=== PATIENT | female | born 2000 | race American Indian/Alaskan Native ===

== ENCOUNTER 2021-04-15 21:09 | Emergency (ER) | payer SELFPAY ==
[2021-04-15 23:29] VITALS: BP 116/72
[2021-04-16] MEDS ORDERED: KETOROLAC 10 MG TAB PO ONE (00:04)
[2021-04-16] MEDS ORDERED: DOXYCYCLINE 100 MG CAP PO ONE (00:04)
[2021-04-16] MEDS ORDERED: ACETAMINOPHEN W/CODEINE 300-30 MG TAB PO ONE (00:05)
--- NOTE | 2021-04-16 00:11 | Emergency Department Report ---
- General Chief complaint: Skin/Abscess/Foreign Body Stated complaint: SKIN RASH/VAGINAL ISSUES Time Seen by Provider: 04/15/21 23:24 Source: patient Mode of arrival: Ambulatory Limitations: No Limitations - History of Present Illness Initial comments: 21 yof with no pmh presents to ed for evaluation of abscesses to several areas of her body. She states that for the past year, she has had intermittent abscesses to her bilateral axillary area, groin, breast and to perineal area. She states that the abscesses are worse the past few days than usual with pain and drainage to certain areas. She denies fever, chills, fatigue and change in appetite. MD complaint: abscess/boil -: Gradual, month(s) (several) Location: chest, genitals Severity scale (0 -10): 10 Quality: aching Consistency: constant Improves with: none Worsens with: movement Associated symptoms: denies other symptoms Treatments Prior to Arrival: none - Related Data Previous Rx's Medication Instructions Recorded Last Taken Type Acetaminophen/Codeine [Tylenol 1 tab PO Q6H PRN #15 tab 04/16/21 Unknown Rx /Codeine # 3 tab] Clindamycin Phosphate [Clindamycin 1 applicatio TP QDAY #1 foam 04/16/21 Unknown Rx 1% TOPICAL FOAM] DOXYCYCLINE Hyclate [Vibramycin 100 mg PO Q12HR #60 capsule 04/16/21 Unknown Rx CAP] Naproxen [Naprosyn] 500 mg PO BID #14 04/16/21 Unknown Rx Allergies Allergy/AdvReac Type Severity Reaction Status Date / Time No Known Allergies Allergy Unverified 04/16/21 00:13 Abscess Boil HPI - HPI Chief Complaint: Skin/Abscess/Foreign Body Stated Complaint: SKIN RASH/VAGINAL ISSUES Time Seen by Provider: 04/15/21 23:24 Duration: >1 Week Location: Perianal Severity: Severe History: Yes Pain, Yes Purulent Drainage, Yes Previous History, No Fever, No Numbness, No Foreign Body, No Insect Bite Home Medications: Previous Rx's Medication Instructions Recorded Last Taken Type Acetaminophen/Codeine [Tylenol 1 tab PO Q6H PRN #15 tab 04/16/21 Unknown Rx /Codeine # 3 tab] Clindamycin Phosphate [Clindamycin 1 applicatio TP QDAY #1 foam 04/16/21 Unknown Rx 1% TOPICAL FOAM] DOXYCYCLINE Hyclate [Vibramycin 100 mg PO Q12HR #60 capsule 04/16/21 Unknown Rx CAP] Naproxen [Naprosyn] 500 mg PO BID #14 04/16/21 Unknown Rx Allergies/Adverse Reactions: Allergies Allergy/AdvReac Type Severity Reaction Status Date / Time No Known Allergies Allergy Unverified 04/16/21 00:13 ED Review of Systems ROS: Stated complaint: SKIN RASH/VAGINAL ISSUES Other details as noted in HPI ED Past Medical Hx - Social History Smoking Status: Current Every Day Smoker - Medications Home Medications: Home Medications Medication Instructions Recorded Confirmed Last Taken Type Acetaminophen/Codeine [Tylenol 1 tab PO Q6H PRN #15 tab 04/16/21 Unknown Rx /Codeine # 3 tab] Clindamycin Phosphate [Clindamycin 1 applicatio TP QDAY #1 foam 04/16/21 Unknown Rx 1% TOPICAL FOAM] DOXYCYCLINE Hyclate [Vibramycin 100 mg PO Q12HR #60 capsule 04/16/21 Unknown Rx CAP] Naproxen [Naprosyn] 500 mg PO BID #14 04/16/21 Unknown Rx ED Physical Exam - General Limitations: No Limitations General appearance: alert, in no apparent distress - Head Head exam: Present: atraumatic, normocephalic - Eye Eye exam: Present: normal appearance. Absent: conjunctival injection - Neck Neck exam: Present: normal inspection - Respiratory Respiratory exam: Present: normal lung sounds bilaterally. Absent: respiratory distress, chest wall tenderness, accessory muscle use - Cardiovascular Cardiovascular Exam: Present: regular rate, normal heart sounds - GI/Abdominal GI/Abdominal exam: Present: soft, normal bowel sounds. Absent: distended, tenderness, guarding - External exam: Present: erythema, swelling, other (noted to have small abscesses to most of external perineal area to include bilateral groin with some purulent drainage noted. area tender to touch) - Extremities Exam Extremities exam: Present: tenderness (noted to have several abscess to bilateral axillary area, area tender to touch with erythema and edema noted. not fluctuant and no drainage noted. ) - Back Exam Back exam: Present: normal inspection, full ROM. Absent: tenderness, CVA tenderness (R), CVA tenderness (L) - Neurological Exam Neurological exam: Present: alert, oriented X3 - Psychiatric Psychiatric exam: Present: normal affect, normal mood - Skin Skin exam: Present: warm, dry, intact, normal color ED Course Vital Signs 04/15/21 04/16/21 23:24 00:40 Temperature 99.0 F Pulse Rate 91 H Respiratory 20 14 Rate Blood Pressure 116/72 O2 Sat by Pulse 100 Oximetry ED Medical Decision Making - Medical Decision Making 21 yof with no pmh presents to ed for evaluation of abscesses to several areas of her body. She states that for the past year, she has had intermittent abscesses to her bilateral axillary area, groin, breast and to perineal area. She states that the abscesses are worse the past few days than usual with pain and drainage to certain areas. She denies fever, chills, fatigue and change in appetite. Upon assessment, abscess areas along with history are suspicious for hidradenitis suppurativa, so patient will be treated with 3 week course of doxycycline po along with clindamycin gel. She is encouraged to follow up with dermatology for further evaluation and management. She verbalized understanding of and agreement with plan of care. Critical care attestation.: If time is entered above; I have spent that time in minutes in the direct care of this critically ill patient, excluding procedure time. ED Disposition Clinical Impression: Abscess Disposition: HOME / SELF CARE / HOMELESS Is pt being admited?: No Does the pt Need Aspirin: No Condition: Stable Instructions: Skin Abscess, [id number], Hidradenitis Suppurativa Additional Instructions: Take medications as prescribed. Follow-up with dermatology for further evaluation. Prescriptions: Clindamycin Phosphate [Clindamycin 1% TOPICAL FOAM] 1 applicatio TP QDAY #1 foam Naproxen [Naprosyn] 500 mg PO BID #14 Acetaminophen/Codeine [Tylenol /Codeine # 3 tab] 1 tab PO Q6H PRN #15 tab PRN Reason: Pain, Moderate (4-6) DOXYCYCLINE Hyclate [Vibramycin CAP] 100 mg PO Q12HR #60 capsule Referrals: NICOLE LING MD [Referring] - 3-5 Days Time of Disposition: 00:12
== END 2021-04-16 01:04 | disposition home or self-care (01) ==
LOC: ED 21:09
DX: L02.215 Cutaneous abscess of perineum (principal); L02.412 Cutaneous abscess of left axilla; L02.411 Cutaneous abscess of right axilla; L02.214 Cutaneous abscess of groin; F17.200 Nicotine dependence, unspecified, uncomplicated; Z79.899 Other long term (current) drug therapy
CPT/HCPCS: 99282

== ENCOUNTER 2021-09-01 00:36 | Emergency (ER) | payer SELFPAY ==
[2021-09-01] MEDS ORDERED: IBUPROFEN 800 MG TAB PO ONE (03:26)
[2021-09-01 05:27] LABS: Bilirubin,Urine NEG (Negative); Blood,Urine NEG (Negative); Color,Urine Yellow (Yellow)
[2021-09-01 05:28] LABS: Mucus,Urine 3+ /HPF
--- NOTE | 2021-09-01 06:57 | Emergency Department Report ---
ED General Adult HPI - General Chief complaint: Sore Throat Stated complaint: CHEST PAIN/THROAT PAIN Time Seen by Provider: 09/01/21 03:26 Source: patient Mode of arrival: Ambulatory Limitations: No Limitations - History of Present Illness Initial comments: Patient is a 21-year-old female who presents for sore throat and chest pain intermittently for a week. Patient states malaise cough productive yellow and malaise. Throat pain is exacerbated by swallowing. Chest pain is exacerbated by movement and deep breathing. There has been no fall injury or trauma. There is no wheezing ,no shortness of breath. Patient does endorse history of asthma. Patient is currently ANO x3 and appears nontoxic. Severity scale (0 -10): 0 - Related Data Previous Rx's Medication Instructions Recorded Last Taken Type Acetaminophen/Codeine [Tylenol 1 tab PO Q6H PRN #15 tab 04/16/21 Unknown Rx /Codeine # 3 tab] Clindamycin Phosphate [Clindamycin 1 applicatio TP QDAY #1 foam 04/16/21 Unknown Rx 1% TOPICAL FOAM] DOXYCYCLINE Hyclate [Vibramycin 100 mg PO Q12HR #60 capsule 04/16/21 Unknown Rx CAP] Naproxen [Naprosyn] 500 mg PO BID #14 04/16/21 Unknown Rx Albuterol Mdi (or & Nicu Only) 2 puff IH QID PRN #8.5 gram 09/01/21 Unknown Rx [ProAir HFA Inhaler] Ibuprofen [Motrin 800 MG tab] 800 mg PO Q8HR PRN #30 tablet 09/01/21 Unknown Rx predniSONE 10 mg PO .TAPER #48 tab 09/01/21 Unknown Rx Allergies Allergy/AdvReac Type Severity Reaction Status Date / Time No Known Allergies Allergy Unverified 04/16/21 00:13 ED Review of Systems ROS: Stated complaint: CHEST PAIN/THROAT PAIN Other details as noted in HPI Constitutional: chills, malaise. denies: fever Eyes: denies: eye pain, eye discharge, vision change ENT: throat pain, congestion. denies: ear pain Respiratory: cough. denies: orthopnea, shortness of breath, wheezing Cardiovascular: chest pain. denies: palpitations, dyspnea on exertion, orthopnea, edema, syncope, paroxysmal nocturnal dyspnea Endocrine: no symptoms reported Gastrointestinal: denies: abdominal pain, nausea, vomiting, diarrhea, constipation, melena Genitourinary: denies: urgency, dysuria, frequency, discharge Musculoskeletal: denies: back pain, joint swelling, arthralgia Skin: denies: rash, lesions Neurological: denies: headache, weakness, paresthesias Psychiatric: denies: anxiety, depression Hematological/Lymphatic: denies: easy bleeding, easy bruising ED Past Medical Hx - Past Medical History Hx Asthma: Yes - Social History Smoking Status: Current Every Day Smoker - Medications Home Medications: Home Medications Medication Instructions Recorded Confirmed Last Taken Type Acetaminophen/Codeine [Tylenol 1 tab PO Q6H PRN #15 tab 04/16/21 Unknown Rx /Codeine # 3 tab] Clindamycin Phosphate [Clindamycin 1 applicatio TP QDAY #1 foam 04/16/21 Unknown Rx 1% TOPICAL FOAM] DOXYCYCLINE Hyclate [Vibramycin 100 mg PO Q12HR #60 capsule 04/16/21 Unknown Rx CAP] Naproxen [Naprosyn] 500 mg PO BID #14 04/16/21 Unknown Rx Albuterol Mdi (or & Nicu Only) 2 puff IH QID PRN #8.5 gram 09/01/21 Unknown Rx [ProAir HFA Inhaler] Ibuprofen [Motrin 800 MG tab] 800 mg PO Q8HR PRN #30 tablet 09/01/21 Unknown Rx predniSONE 10 mg PO .TAPER #48 tab 09/01/21 Unknown Rx ED Physical Exam - General Limitations: No Limitations General appearance: alert, in no apparent distress - Head Head exam: Present: normocephalic, normal inspection - Eye Eye exam: Present: normal appearance, PERRL, EOMI. Absent: conjunctival injection, nystagmus Pupils: Present: normal accommodation - ENT ENT exam: Present: normal orophraynx, mucous membranes moist, TM's normal bilaterally, normal external ear exam - Expanded ENT Exam Expanded Ear exam: Present: normal external inspection Throat exam: Positive: normal inspection, tonsillar erythema. Negative: tonsillomegaly, tonsillar exudate, R peritonsillar mass, L peritonsillar mass - Neck Neck exam: Present: normal inspection, full ROM. Absent: tenderness, meningismus, lymphadenopathy, thyromegaly - Respiratory Respiratory exam: Present: normal lung sounds bilaterally, chest wall tenderness (Anterior lateral chest wall bilateral tenderness to deep palpation. There is no crepitus ecchymosis or swelling or step-off.). Absent: respiratory distress, wheezes, stridor, accessory muscle use, prolonged expiratory - Cardiovascular Cardiovascular Exam: Present: regular rate, normal rhythm, normal heart sounds. Absent: systolic murmur, diastolic murmur, rubs, gallop - GI/Abdominal GI/Abdominal exam: Present: soft, normal bowel sounds. Absent: distended, tenderness, guarding, rebound, rigid, bruit, hernia - Rectal Rectal exam: Present: deferred - Extremities Exam Extremities exam: Present: normal inspection, full ROM, normal capillary refill. Absent: tenderness - Back Exam Back exam: Present: normal inspection, full ROM. Absent: CVA tenderness (R), CVA tenderness (L) - Neurological Exam Neurological exam: Present: alert, oriented X3, CN II-XII intact, normal gait, reflexes normal. Absent: motor sensory deficit - Expanded Neurological Exam Expanded Patient oriented to: Present: person, place, time Motor strength exam: RUE: 5, LUE: 5, RLE: 5, LLE: 5 Best Eye Response (Felix): (4) open spontaneously Best Motor Response (Felix): (6) obeys commands Best Verbal Response (Grawn): (5) oriented Grawn Total: 15 - Psychiatric Psychiatric exam: Present: normal affect, normal mood - Skin Skin exam: Present: warm, dry, intact, normal color. Absent: rash ED Course Vital Signs 09/01/21 00:43 Temperature 97.9 F Pulse Rate 56 L Respiratory 18 Rate Blood Pressure 103/56 O2 Sat by Pulse 100 Oximetry ED Medical Decision Making - Lab Data Labs 09/01/21 Unknown Urine Color Yellow Urine Turbidity Slightly-cloudy Urine pH 6.0 Ur Specific [place] 1.032 H Urine Protein 30 mg/dl Urine Glucose (UA) Neg Urine Ketones 80 Urine Blood Neg Urine Nitrite Neg Urine Bilirubin Neg Urine Urobilinogen 2.0 Ur Leukocyte Esterase Tr Urine WBC (Auto) 24.0 H Urine RBC (Auto) 7.0 U Epithel Cells (Auto) 17.0 H Urine Mucus 3+ - EKG Data EKG shows normal: sinus rhythm, axis, intervals, QRS complexes, ST-T waves Rate: normal - EKG Data Interpretation: normal EKG - Radiology Data Radiology results: report reviewed, image reviewed EKG normal sinus rhythm no ST elevated SC, chest x-ray is normal, there is no fever no chills. Exam plan DC to home diagnosis viral syndrome, DC with prescriptions NSAIDs as needed for aches and pains., [id number] Claritin, follow-up with primary care doctor. Patient verbalized agreement understanding with discharge plan. Patient DC'd home in stable condition at this time. Critical care attestation.: If time is entered above; I have spent that time in minutes in the direct care of this critically ill patient, excluding procedure time. ED Disposition Clinical Impression: Viral illness Disposition: HOME / SELF CARE / HOMELESS Is pt being admited?: No Does the pt Need Aspirin: No Condition: Stable Instructions: Viral Respiratory Infection, [id number] Additional Instructions: Take medications as prescribed follow-up with your primary care doctor in 2 to 3 days. Return to emergency department should symptoms worsen. Prescriptions: Ibuprofen [Motrin 800 MG tab] 800 mg PO Q8HR PRN #30 tablet PRN Reason: Pain fever predniSONE 10 mg PO .TAPER #48 tab Albuterol Mdi (or & Nicu Only) [ProAir HFA Inhaler] 2 puff IH QID PRN #8.5 gram PRN Reason: Shortness Of Breath Referrals: FRANCISCA FRANCIS MD [Staff Physician] - 3-5 Days Forms: Work/School Release Form(ED) Time of Disposition: 07:18
[2021-09-01 07:37] LABS: HCG Qualitative,Urine Negative (Negative)
[2021-09-01 07:55] VITALS: BP 112/64
[2021-09-01] MEDS ORDERED: LORazepam 2 MG/ML VIAL ONE (10:03)
--- NOTE | 2021-09-01 11:17 | Electrocardiograph Report ---
[facility] Test Date: 2021-09-01 Test Time: 01:01:24 Pat Name: KATHIE LERNER Department: Room: Gender: F Front End Specialist: THIERRY : 2000 Requested By: JOAN KINGSLEY Order Number: [id number] Reading MD: Pierre López Measurements Intervals Era Rate: 59 P: 69 GA: 135 QRS: 67 QRSD: 93 T: 39 QT: 437 QTc: 434 Interpretive Statements Sinus rhythm No previous ECG available for comparison Electronically Signed On 09-01-2021 11:16:27 EDT by Pierre López
== END 2021-09-01 07:55 | disposition home or self-care (01) ==
LOC: ED 00:36
DX: B34.9 Viral infection, unspecified (principal); J45.909 Unspecified asthma, uncomplicated; Z79.899 Other long term (current) drug therapy; F17.200 Nicotine dependence, unspecified, uncomplicated
CPT/HCPCS: 81001; 81025; 87076; 87086; 87186; 93005; 99283; J2060